=== PATIENT | male | born 1985 | race American Indian/Alaskan Native ===

== ENCOUNTER 2016-08-22 00:22 | Emergency (ER) | payer SELFPAY ==
[2016-08-22 00:36] VITALS: BP 143/93
[2016-08-22] MEDS ORDERED: TYLENOL PO ONE (00:36)
== END 2016-08-22 06:25 | disposition left against medical advice (07) ==
LOC: ED 00:22
DX: M54.5 Low back pain (principal); M25.551 Pain in right hip; F17.200 Nicotine dependence, unspecified, uncomplicated; Z91.010 Allergy to peanuts; Z53.21 Procedure and treatment not carried out due to patient leaving prior to being seen by health care provider